=== PATIENT | female | born 1960 | race Two or more races ===

== ENCOUNTER 2023-01-10 17:32 | Emergency (ER) | payer OTHER ==
[~2023-01-10] VITALS: Ht 154.9 cm; Wt 65.8 kg
[2023-01-10] MEDS ORDERED: METOPROLOL SUCC25 MG PO (18:31)
[2023-01-10] MEDS ORDERED: GLIMEPIRIDE4 M1 PO (18:31)
[2023-01-10] MEDS ORDERED: LOSARTAN POTAS100 MG PO (18:31)
[2023-01-10] MEDS ORDERED: INSULIN GL100 UNIT/3 (18:32)
[2023-01-10] MEDS ORDERED: LEVEMIR100 UNIT/1 SQ (18:33)
[2023-01-10] MEDS ORDERED: CLINDAMYCIN HC300 MG PO (18:34)
[2023-01-10] MEDS ORDERED: ADULT LOW DOSE81 M1 (18:34)
[2023-01-10] MEDS ORDERED: HYDRODIURIL12.5 MG (18:35)
[2023-01-10 20:03] LABS: CALCIUM 9.3 mg/dL (8.5-10.1); CREATININE SERUM 0.85 mg/dL (0.55-1.02); GFR 67.55
[2023-01-10 20:26] LABS: POTASSIUM 4.11 mEq/L (3.5-5.1)
== END 2023-01-10 21:46 | disposition home or self-care (01) ==
LOC: ER 17:32
PROVIDERS: General Practice
DX: R60.0 Localized edema (principal); Z88.0 Allergy status to penicillin; Z91.013 Allergy to seafood; E11.65 Type 2 diabetes mellitus with hyperglycemia; Z79.4 Long term (current) use of insulin

== ENCOUNTER 2024-05-19 20:42 | Emergency (ER) | payer OTHER ==
[~2024-05-19] VITALS: Ht 154.9 cm; Wt 58.5 kg
[~2024-05-19 20:42] MED LIST: ADULT LOW DOSE81 M1; CLINDAMYCIN HC300 MG PO; GLIMEPIRIDE4 M1 PO; HYDRODIURIL12.5 MG; INSULIN GL100 UNIT/3; LEVEMIR100 UNIT/1 SQ; LOSARTAN POTAS100 MG PO; METOPROLOL SUCC25 MG PO; PROVENTIL HFA6.7 GM IH; SYMBICORT 16010.2 GM IH; ZYNCOF 20-400120 ML PO
[2024-05-19] MEDS ORDERED: KETOROLAC TROMETHAMINE 30 MG VIAL IM STA (22:48)
[2024-05-19] MEDS ORDERED: CEFTRIAXONE SODIUM 1,000 MG VIAL IM STA (22:48)
== END 2024-05-19 23:29 | disposition home or self-care (01) ==
LOC: ER 20:45
DX: L97.509 Non-pressure chronic ulcer of other part of unspecified foot with unspecified severity (principal); M25.50 Pain in unspecified joint; Z88.0 Allergy status to penicillin; Z91.013 Allergy to seafood
CPT/HCPCS: 96372; 99282; J0696; J1885

== ENCOUNTER 2025-01-09 16:47 | Emergency (ER) | payer OTHER ==
[~2025-01-09] VITALS: Ht 142.2 cm; Wt 59.9 kg
[2025-01-09] MEDS ORDERED: LANTUS SOL100 UNIT/1 (16:55)
[2025-01-09] MEDS ORDERED: DEXAMETHASONE SODIUM PHOSPHATE 4 MG/ML VIAL IM STA (17:31)
[2025-01-09] MEDS ORDERED: KETOROLAC TROMETHAMINE 30 MG VIAL IM STA (17:31)
[2025-01-09] MEDS ORDERED: CETIRIZINE HCL 10 MG TABLET PO ONE (17:45)
[2025-01-09] MEDS ORDERED: CETIRIZINE HCL 5MG/5ML BLIST.PACK PO ONE (18:00)
[2025-01-09] MEDS ORDERED: DEXAMETHASONE SODIUM PHOSPHATE 4 MG/ML VIAL ONE (18:00)
[2025-01-09] MEDS ORDERED: KETOROLAC TROMETHAMINE 60 MG VIAL IM ONE (18:00)
[2025-01-09 18:30] LABS: BASO % 0.6 % (0.1-1.2); EOS # 0.18 (0.04-0.54); EOS % 2.0 % (0.7-7.0); LYMPH # 3.10 (1.18-3.74); LYMPH % 35.2 % (19.3-53.1); MEAN PLATELET VOLUME 10.50 fl (9.4-12.4); MONO # 0.64 (0.24-0.82); MONO % 7.3 % (4.7-12.5); NEUT # 4.79 (1.56-6.13); NEUT % 54.4 % (34.0-71.1); RED CELL DISTRIBUTION WIDTH 12.5 % (11.6-14.4)
[2025-01-09 19:19] LABS: COVID-19 AG NEGATIVE (NEGATIVE)
[2025-01-09] MEDS ORDERED: ZYRTEC10 MG PO (20:34)
[2025-01-09] MEDS ORDERED: KETO10TA2 PO (20:34)
== END 2025-01-09 21:43 | disposition home or self-care (01) ==
LOC: ER 16:47
PROVIDERS: General Practice
DX: M25.561 Pain in right knee (principal); M25.562 Pain in left knee; Z20.822 Contact with and (suspected) exposure to COVID-19; I10 Essential (primary) hypertension; E11.9 Type 2 diabetes mellitus without complications; Z79.4 Long term (current) use of insulin; Z88.0 Allergy status to penicillin; Z91.013 Allergy to seafood
CPT/HCPCS: 36415; 96372; 99282; J1100; J1885

== ENCOUNTER 2025-01-23 14:17 | Emergency (ER) | payer OTHER ==
[~2025-01-23] VITALS: Ht 154.9 cm; Wt 61.7 kg
[~2025-01-23 14:17] MED LIST changes: +KETO10TA2 PO; +LANTUS SOL100 UNIT/1; +ZYRTEC10 MG PO
[2025-01-23 15:38] VITALS: BP 164/73; O2SAT 99
[2025-01-23] MEDS ORDERED: TRIJARDY XR 101 EACH PO (15:42)
[2025-01-23] MEDS ORDERED: NIFEDIPINE20 MG (15:43)
[2025-01-23] MEDS ORDERED: ATORVASTATIN CA20 MG PO (15:44)
[2025-01-23] MEDS ORDERED: 0.9 % SODIUM CHLORIDE 1,000 ML IV SCH (16:00)
[2025-01-23] MEDS ORDERED: FAMOtidine 40 MG in 0.9 % SODIUM CHLORIDE 8 ML IV PUSH ONE (16:00)
[2025-01-23] MEDS ORDERED: ONDANSETRON HCL 2 MG/ML VIAL IV ONE (16:00)
[2025-01-23] MEDS ORDERED: KETOROLAC TROMETHAMINE 30 MG VIAL IV ONE (16:00)
[2025-01-23 17:11] LABS: BASO % 0.6 % (0.1-1.2); EOS # 0.10 (0.04-0.54); EOS % 0.9 % (0.7-7.0); LYMPH # 2.91 (1.18-3.74); LYMPH % 25.2 % (19.3-53.1); MEAN PLATELET VOLUME 10.50 fl (9.4-12.4); MONO # 0.56 (0.24-0.82); MONO % 4.9 % (4.7-12.5); NEUT # 7.87 (1.56-6.13); NEUT % 68.1 % (34.0-71.1); RED CELL DISTRIBUTION WIDTH 12.4 % (11.6-14.4)
[2025-01-23] MEDS ORDERED: ONDANSETRON HCL 2 MG/ML VIAL ONE (17:12)
[2025-01-23] MEDS ORDERED: FAMOTIDINE/PF 20 MG/2 ML VIAL ONE (17:12)
[2025-01-23] MEDS ORDERED: KETOROLAC TROMETHAMINE 30 MG VIAL ONE (17:12)
[2025-01-23 17:15] LABS: URINE APPEARANCE Cloudy; URINE BILIRRUBIN Negative (NEGATIVE); URINE BLOOD Large; URINE COLOR Yellow; URINE KETONE Negative (NEGATIVE); URINE LEUKOCYTE Negative; URINE NITRATE Negative; URINE PROTEIN >=1000 (NEGATIVE); URINE UROBILINOGEN 0.2 E.U./dl
[2025-01-23 17:19] LABS: URINE CAST 18.47 uL (0.0-1.40); URINE EPITHELIAL CELLS 61.8 uL (0.0-38.8); URINE RBC 212.6 uL (0.0-20.8)
[2025-01-23 17:27] LABS: URINE GLUCOSE >=1000 MG/DL (NEGATIVE)
[2025-01-23 17:35] LABS: URINE MUCUS SCANT; URINE WBC 472.1 uL (0.0-23.2)
[2025-01-23 17:36] LABS: TYPE CELLS SQUAMOUS
[2025-01-23 17:37] LABS: URINE YEAST FEW /hpf
[2025-01-23 17:42] LABS: ALT/SGPT 16.0 U/L (12-78); AST/SGOT 12.0 U/L (15-37); BILIRUBIN TOTAL 0.72 mg/dL (0.3-1.2); BUN CREA RATIO 20.0 (7.0-25.0); CREATININE SERUM 0.83 mg/dL (0.55-1.02); GFR 68.99; GLOBULINA 3.5 G/DL (2.4-3.5); GLUCOSE FASTING 307.0 mg/dL (65-100); OSMOLALITY SERUM 296.0 MOSM/KG (275-295)
[2025-01-23] MEDS ORDERED: SUCRALFATE 1 G TABLET PO ONE (18:30)
[2025-01-24] MEDS ORDERED: levoFLOXacin IN DEXTROSE 5 % 5 MG/ML PIGGYBAG IV ONE (01:00)
[2025-01-24] MEDS ORDERED: TRAMADOL HCL 50 MG TABLET PO ONE (01:45)
[2025-01-24] MEDS ORDERED: FAMOTIDINE/PF 20 MG/2 ML VIAL ONE (01:47)
[2025-01-24] MEDS ORDERED: 8 HOUR650 MG PO (01:56)
[2025-01-24] MEDS ORDERED: MACROBID 100 M100 MG PO (01:56)
[2025-01-24] MEDS ORDERED: FAMOtidine 10 MG/ML (4ML VIAL) IV ONE (02:00)
== END 2025-01-24 07:41 | disposition home or self-care (01) ==
LOC: ER 14:17
PROVIDERS: General Practice
DX: N39.0 Urinary tract infection, site not specified (principal); D25.9 Leiomyoma of uterus, unspecified; J90 Pleural effusion, not elsewhere classified; R10.9 Unspecified abdominal pain; I10 Essential (primary) hypertension; E11.9 Type 2 diabetes mellitus without complications; Z79.84 Long term (current) use of oral hypoglycemic drugs; Z88.0 Allergy status to penicillin; Z91.013 Allergy to seafood
CPT/HCPCS: 36415; 71046; 71250; 74177; 82803; 96365; 96366; 99284; J1885; J2405; J3490 ×3; J7030; Q9965